=== PATIENT | male | born 1955 | race African-American/Black ===

== ENCOUNTER 2022-02-26 07:21 | Emergency (ER) | payer MEDICARE, OTHER ==
[~2022-02-26] VITALS: Ht 182.9 cm; Wt 87.1 kg
--- NOTE | 2022-02-26 07:36 | NUR ---
DR PARNELL AT BEDSIDE FOR EVAL
--- NOTE | 2022-02-26 07:45 | NUR ---
[id number] C/O RIGHT SIDED CHEST PAIN SINCE LAST NIGHT P/S 06/28, GIVEN 325MG ASPIRIN PO AND SPRAY OF NITRO 0.4MG, PER PT NO RELIEF. AT THIS TIME THE PATIENT C/O MID-STERNAL NON-RADIATING CHEST PAIN 03/28. iN ROOM AIR AND DENIES SOB. RESPIRATION REGULAR AND UNLABORED. ATTACHED THE PATIENT TO THE MONITOR. WILL CONTINUE TO MONITOR THE PATIENT.
--- NOTE | 2022-02-26 07:55 | NUR ---
BLOOD SPECIMEN COLLECTED AND SENT TO THE LAB.
--- NOTE | 2022-02-26 07:57 | NUR ---
REFUSED X-RAY AT THIS TIME. AWARE.
[2022-02-26 08:33] LABS: BASOPHILS % (AUTO) 0.7 % (0.0-2.0); EOSINOPHILS % (AUTO) 0.5 % (0.0-6.0); HEMATOCRIT 42 % (39-51); HEMOGLOBIN 13.9 g/dL (13.5-17.5); LYMPHOCYTES # (AUTO) 1.3 K/uL (0.8-4.8); LYMPHOCYTES % (AUTO) 35.4 % (20.0-44.0); MEAN CORPUSCULAR HGB CONC 33 g/dl (31.0-36.0); MEAN CORPUSCULAR VOLUME 90 fL (80-96); MONOCYTES # (AUTO) 0.4 K/uL (0.1-1.30); MONOCYTES % (AUTO) 11.5 % (2.0-12.0); NEUTROPHILS # (AUTO) 1.9 K/uL (1.8-8.9); NEUTROPHILS % (AUTO) 51.9 % (43.0-81.0); PLATELET COUNT (AUTO) 180 K/uL (150-450); RED BLOOD CELL COUNT(AUTO) 4.68 MIL/uL (4.5-6.0); WHITE BLOOD COUNT (AUTO) 3.6 K/uL (4.3-11.0)
[2022-02-26 08:41] LABS: CARBON DIOXIDE 28 mmol/L (21-32); CHLORIDE 106 mmol/L (98-107); CREATININE 0.7 mg/dL (0.6-1.3); GLUCOSE 98 mg/dL (74-106); POTASSIUM 4.3 mmol/L (3.5-5.1); SODIUM SERUM 142 mmol/L (136-145); UREA NITROGEN, BLOOD 17 mg/dL (7-18)
--- NOTE | 2022-02-26 08:53 | NUR ---
IV removed. Catheter intact and site benign. Pressure and 4x4 applied to site. No bleeding noted.Patient does not wish to proceed with medical care recommended by Dr. Grewal. Patient given information related to possible complications, up to and including , which could occur as a result of leaving the hospital at this time. Patient verbalizes understanding of risks involved due to leaving against medical advice. Patient has signed AMA form.
[2022-02-26 08:54] VITALS: BP 151/72
== END 2022-02-26 08:55 | disposition left against medical advice (07) ==
LOC: ER 07:36
DX: R07.89 Other chest pain (principal); I10 Essential (primary) hypertension; Z86.69 Personal history of other diseases of the nervous system and sense organs
CPT/HCPCS: 36415; 80048-TC; 84484-TC; 85025-TC